=== PATIENT | male | born 1950 | race Hispanic/Latino ===

== ENCOUNTER 2017-06-16 20:36 | Emergency (ER) | payer OTHER ==
[2017-06-16] MEDS ORDERED: OCTYL 2-CYANOACRYLATE 1 EACH TP ONE ×2 (21:24→22:39)
== END 2017-06-16 23:27 | disposition home or self-care (01) ==
LOC: EDH 20:36
DX: S51.811A Laceration without foreign body of right forearm, initial encounter (principal); S51.011A Laceration without foreign body of right elbow, initial encounter; E11.9 Type 2 diabetes mellitus without complications; I10 Essential (primary) hypertension; E78.5 Hyperlipidemia, unspecified; Z72.0 Tobacco use; W01.0XXA Fall on same level from slipping, tripping and stumbling without subsequent striking against object, initial encounter; Y93.01 Activity, walking, marching and hiking; Y92.098 Other place in other non-institutional residence as the place of occurrence of the external cause; Y99.8 Other external cause status
CPT/HCPCS: 12004

== ENCOUNTER 2017-07-24 15:18 | Inpatient (IN) | payer OTHER ==
[~2017-07-24] VITALS: Ht 160 cm; Wt 73.0 kg
[2017-07-24 17:09] LABS: BASOPHILS % (AUTO) 0.6 % (0.0-5.0); EOSINOPHILS % (AUTO) 0.1 % (0.0-8.0); HEMATOCRIT 43.8 % (42-54); LYMPHOCYTES % (AUTO) 11.9 % (21.0-51.0); MEAN CORPUSCULAR HEMOGLOBIN 25.9 pg (27.0-33.0); MEAN CORPUSCULAR HGB CONC 32.4 g/dL (32.0-36.0); MEAN CORPUSCULAR VOLUME 79.8 fL (79-99); MONOCYTES % (AUTO) 7.8 % (3.0-13.0); NEUTROPHILS % (AUTO) 79.6 % (40.0-77.0); PLATELET COUNT (AUTO) 296 K/uL (130-400); RED BLOOD CELL COUNT(AUTO) 5.49 MIL/uL (4.50-6.20); RED CELL DISTRIBUTION WIDTH 17.9 % (11.0-15.5); WHITE BLOOD COUNT (AUTO) 14.3 K/uL (4.8-10.8)
[2017-07-24 17:20] LABS: CREATININE 0.8 mg/dL (0.5-1.5); POTASSIUM 3.4 mmol/L (3.5-5.1)
[2017-07-24 17:24] LABS: INR 0.96 (0.85-1.15); PARTIAL THROMBOPLASTIN TIME 26.8 SEC (26.3-35.5); PROTHROMBIN TIME 9.9 SEC (9.6-11.6)
[2017-07-24 17:28] LABS: APPEARANCE,URINE Clear (CLEAR); BILIRUBIN,URINE Negative (NEGATIVE); COLOR,URINE Yellow (YELLOW); GLUCOSE, URINE (UA) Negative (NEGATIVE); KETONES,URINE Negative (NEGATIVE); LEUKOCYTE ESTERASE ,URINE Negative (NEGATIVE); NITRATE,URINE Negative (NEGATIVE); OCCULT BLOOD,URINE Trace (NEGATIVE); PH,URINE 6.5 (5.0-8.0); PROTEIN,URINE POS 1+ (NEGATIVE)
[2017-07-24 17:34] LABS: ALBUMIN 3.2 g/dL (3.5-5.0); BILIRUBIN,TOTAL 0.3 mg/dL (0.2-1.0); CREATINE KINASE MB 0.6 ng/mL (0.5-3.6); TOTAL PROTEIN, SERUM 7.2 g/dL (6.0-8.3)
[2017-07-24 17:36] LABS: BACTERIA,URINE None Seen /HPF (None Seen); HYALINE CASTS, URINE 0-1 /LPF (0-1 /LPF); MUCUS,URINE Moderate LPF (None Seen); RBC,URINE None Seen /HPF (0-1); SQUAMOUS EPITHELIAL CELL,UR 0-2 /HPF (0-2); WBC,URINE None Seen /HPF (0-1)
[2017-07-24] MEDS ORDERED: KETOROLAC TROMETHAMINE 15MG/ML ONE (18:12)
[2017-07-25] VITALS (22 sets, daily range): BP systolic 114–189; BP diastolic 57–105
[2017-07-25 07:02] LABS: BASOPHILS % (AUTO) 0.6 % (0.0-5.0); EOSINOPHILS % (AUTO) 0.4 % (0.0-8.0); HEMATOCRIT 44.1 % (42-54); LYMPHOCYTES % (AUTO) 16.1 % (21.0-51.0); MEAN CORPUSCULAR HEMOGLOBIN 26.1 pg (27.0-33.0); MEAN CORPUSCULAR HGB CONC 32.5 g/dL (32.0-36.0); MEAN CORPUSCULAR VOLUME 80.4 fL (79-99); MONOCYTES % (AUTO) 7.4 % (3.0-13.0); NEUTROPHILS % (AUTO) 75.5 % (40.0-77.0); PLATELET COUNT (AUTO) 360 K/uL (130-400); RED BLOOD CELL COUNT(AUTO) 5.49 MIL/uL (4.50-6.20); RED CELL DISTRIBUTION WIDTH 17.8 % (11.0-15.5); WHITE BLOOD COUNT (AUTO) 13.9 K/uL (4.8-10.8)
[2017-07-25 07:17] LABS: CREATININE 0.6 mg/dL (0.5-1.5); POTASSIUM 3.8 mmol/L (3.5-5.1)
[2017-07-25 07:24] LABS: ALBUMIN 3.1 g/dL (3.5-5.0); BILIRUBIN,TOTAL 0.5 mg/dL (0.2-1.0); TOTAL PROTEIN, SERUM 7.3 g/dL (6.0-8.3)
[2017-07-25] MEDS ORDERED: SODIUM CHLORIDE 0.9% 1000ML 1,000 ML IV ONE (09:58)
[2017-07-25] MEDS ORDERED: GLYCOPYRROLATE 0.2 MG/ML 5 ML VIAL ONE (10:09)
[2017-07-25] MEDS ORDERED: LIDOCAINE PF 2% 5ML ABBOJECT ONE (10:09)
[2017-07-25] MEDS ORDERED: DEXAMETHASONE SOD PHOSPHATE 10MG/ML 1ML VIAL ONE (10:09)
[2017-07-25] MEDS ORDERED: MIDAZOLAM HCL 1 MG/ML 2ML VIAL ONE (10:10)
[2017-07-25] MEDS ORDERED: PROPOFOL 10 MG/ML 20ML VIAL IV ONE (10:10)
[2017-07-25] MEDS ORDERED: FENTANYL CITRATE PF 50 MCG/1 ML 2ML VIAL ONE (10:11)
[2017-07-25] MEDS ORDERED: CEFAZOLIN SODIUM 1 GM VIAL ONE (10:14)
[2017-07-25] MEDS ORDERED: ROCURONIUM BROMIDE 10MG/1ML 5ML VL ONE ×3 (10:25)
[2017-07-25] MEDS ORDERED: BUPIVACAINE/PF 0.25% 30ML VIAL IJ ONE (10:41)
[2017-07-25] MEDS ORDERED: ACETAMINOPHEN-CODEINE 300/30MG TAB PO PRN (11:00)
[2017-07-25] MEDS ORDERED: MEPERIDINE-PF 25 MG/ML SYG ONE (11:17)
[2017-07-25] MEDS ORDERED: ONDANSETRON HCL MDV 20ML 2 MG/ML VIAL IVP PRN (12:00)
[2017-07-25] MEDS ORDERED: MORPHINE SULFATE 4 MG/1ML SYG IVP PRN (12:00)
[2017-07-25] MEDS ORDERED: CLON0.3T PO (12:32)
[2017-07-25] MEDS ORDERED: AMLO5TAB2 PO (12:32)
[2017-07-25] MEDS: SODIUM CHLORIDE 0.9% 1000ML 1,000 ML IV SCH (12:33)
[2017-07-25] MEDS ORDERED: ONDANSETRON HCL 4 MG/2 ML VIAL IVP PRN (13:15)
[2017-07-25] MEDS ORDERED: GLUCAGON 1MG KIT 1 MG ML IM PRN (13:15)
[2017-07-25] MEDS ORDERED: HYDRALAZINE HCL 20 MG/ML VIAL IV PRN (13:15)
[2017-07-25] MEDS ORDERED: DEXTROSE 50%-WATER 50 ML DISP.SYRIN IV PRN (13:15)
[2017-07-25] MEDS: INSULIN HUMULIN R 100 UNIT/ML 3ML SQ SCH ×2 (16:15→21:00)
[2017-07-25] MEDS: CEFAZOLIN SODIUM 1 GM VIAL IVP SCH (17:19)
[2017-07-25] MEDS ORDERED: CEFAZOLIN 2GM / 50 ML 50 ML IV SCH (18:00)
[2017-07-25] MEDS: CLONIDINE HCL 0.3 MG TABLET PO SCH ×2 (18:14→22:12)
[2017-07-26] MEDS ORDERED: CEFAZOLIN SODIUM 1 GM VIAL ONE (03:02)
[2017-07-26 03:05] VITALS: BP 141/83
[2017-07-26] MEDS: CEFAZOLIN SODIUM 1 GM VIAL IVP SCH (03:13)
[2017-07-26] MEDS: SODIUM CHLORIDE 0.9% 1000ML 1,000 ML IV SCH (06:55)
[2017-07-26 07:05] VITALS: BP 168/83
[2017-07-26] MEDS: INSULIN HUMULIN R 100 UNIT/ML 3ML SQ SCH ×2 (07:30→11:30)
[2017-07-26] MEDS ORDERED: NYSTATIN 15 GM POWDER TP SCH (09:00)
[2017-07-26] MEDS ORDERED: AMLODIPINE BESYLATE 5 MG TAB PO SCH (09:00)
[2017-07-26 11:00] VITALS: BP 157/72
[2017-07-26 11:59] VITALS: BP 152/72
[2017-07-26] MEDS: CLONIDINE HCL 0.3 MG TABLET PO SCH (11:59)
== END 2017-07-26 16:36 | disposition home or self-care (01) | DRG 355 ==
LOC: EDH 15:18 → OBSVTOIN 18:02 → EDHIP 18:02 → 4BH 07-25 10:07
PROVIDERS: ADMIT Internal Medicine; ATTEND Internal Medicine
PROC: 0WQF0ZZ Repair Abdominal Wall, Open Approach (ICD-10-PCS; principal; 2017-07-25 10:25)
DX: K42.0 Umbilical hernia with obstruction, without gangrene (principal); E11.9 Type 2 diabetes mellitus without complications; I10 Essential (primary) hypertension; E78.5 Hyperlipidemia, unspecified; Z86.73 Personal history of transient ischemic attack (TIA), and cerebral infarction without residual deficits; N28.89 Other specified disorders of kidney and ureter
CPT/HCPCS: 36415; 71045; 74176; 76770; 80053; 81001; 82150; 82550; 82553; 82948; 83690; 84484; 85025; 85610; 85730; 93005; A4218; A4606; C1781; J0360; J0690; J1100; J1885; J2001; J2175; J2250; J2704; J3010; J3490; J7030; J7120

== ENCOUNTER 2018-12-11 09:00 | Emergency (ER) | payer OTHER ==
[~2018-12-11 09:00] MED LIST: ACET-2247 PO; AMLO5TAB9 PO; ASPI1CPM6 PO; CLON0.3T PO; ESCI20TA PO; LEVO150T11 PO; PRAV10TA39 PO; TRAZ150T79 PO
[2018-12-11 09:31] LABS: BASOPHILS % (AUTO) 1.1 % (0.0-5.0); EOSINOPHILS % (AUTO) 0.3 % (0.0-8.0); HEMATOCRIT 40.6 % (42-54); LYMPHOCYTES % (AUTO) 14.5 % (21.0-51.0); MEAN CORPUSCULAR HEMOGLOBIN 23.6 pg (27.0-33.0); MEAN CORPUSCULAR HGB CONC 31.5 g/dL (32.0-36.0); MEAN CORPUSCULAR VOLUME 74.8 fL (79-99); MONOCYTES % (AUTO) 7.6 % (3.0-13.0); NEUTROPHILS % (AUTO) 76.5 % (40.0-77.0); PLATELET COUNT (AUTO) 199 K/uL (130-400); RED BLOOD CELL COUNT(AUTO) 5.43 MIL/uL (4.50-6.20); RED CELL DISTRIBUTION WIDTH 20.7 % (11.0-15.5); WHITE BLOOD COUNT (AUTO) 9.2 K/uL (4.8-10.8)
[2018-12-11 09:44] LABS: CARBON DIOXIDE 30 mmol/L (21-32); CHLORIDE 106 mmol/L (101-111); CREATININE 0.5 mg/dL (0.5-1.5); GLOMERULAR FILTR. RATE CALC 176 mL/min (>60); GLUCOSE,RANDOM 109 mg/dL (70-105); POTASSIUM 3.7 mmol/L (3.5-5.1); SODIUM SERUM 144 mmol/L (136-145); UREA NITROGEN, BLOOD 12 mg/dL (7-18)
[2018-12-11 09:45] LABS: INR 0.91 (0.85-1.15); PARTIAL THROMBOPLASTIN TIME 28.2 SEC (26.3-35.5); PROTHROMBIN TIME 9.6 SEC (9.6-11.6)
[2018-12-11 09:48] LABS: ALANINE AMINOTRANSFERASE 18 U/L (12-78); ALBUMIN 2.9 g/dL (3.5-5.0); ALCOHOL, BLOOD < 3 mg/dL (0-10); ASPARTATE AMINOTRANSFERASE 19 U/L (10-37); BILIRUBIN,TOTAL 0.2 mg/dL (0.2-1.0); TOTAL PROTEIN, SERUM 6.2 g/dL (6.0-8.3)
[2018-12-11 10:47] LABS: AMPHET/METH SCREEN,URINE NEGATIVE (NEGATIVE); BARBITURATE SCREEN, URINE NEGATIVE (NEGATIVE); BENZODIAZEPINES SCREEN,URINE NEGATIVE (NEGATIVE); CANNABINOID SCREEN,URINE NEGATIVE (NEGATIVE); COCAINE SCREEN,URINE NEGATIVE (NEGATIVE); OPIATE SCREEN,URINE NEGATIVE (NEGATIVE); PHENCYCLIDINE SCREEN,URINE NEGATIVE (NEGATIVE)
== END 2018-12-11 11:27 | disposition home or self-care (01) ==
LOC: EDH 09:00
DX: S29.9XXA Unspecified injury of thorax, initial encounter (principal); S40.812A Abrasion of left upper arm, initial encounter; S43.402A Unspecified sprain of left shoulder joint, initial encounter; I10 Essential (primary) hypertension; E78.5 Hyperlipidemia, unspecified; E11.9 Type 2 diabetes mellitus without complications; Z86.73 Personal history of transient ischemic attack (TIA), and cerebral infarction without residual deficits; Z72.0 Tobacco use; Z98.890 Other specified postprocedural states; W18.39XA Other fall on same level, initial encounter; Y93.01 Activity, walking, marching and hiking; Y92.89 Other specified places as the place of occurrence of the external cause; Y99.8 Other external cause status
CPT/HCPCS: 36415; 71250; 80053; 80305; 84484; 85025; 85610; 85730; 93005; 99285; G0480

== ENCOUNTER 2019-06-09 13:47 | Emergency (ER) | payer OTHER ==
[2019-06-09 15:09] LABS: BASOPHILS % (AUTO) 0.4 % (0.0-5.0); EOSINOPHILS % (AUTO) 0.7 % (0.0-8.0); HEMATOCRIT 42.8 % (42-54); LYMPHOCYTES % (AUTO) 19.6 % (21.0-51.0); MEAN CORPUSCULAR HEMOGLOBIN 24.6 pg (27.0-33.0); MEAN CORPUSCULAR HGB CONC 30.4 g/dL (32.0-36.0); MEAN CORPUSCULAR VOLUME 81.1 fL (79-99); MONOCYTES % (AUTO) 8.5 % (3.0-13.0); NEUTROPHILS % (AUTO) 70.3 % (40.0-77.0); PLATELET COUNT (AUTO) 288 K/uL (130-400); RED BLOOD CELL COUNT(AUTO) 5.28 MIL/uL (4.50-6.20); RED CELL DISTRIBUTION WIDTH 19.9 % (11.0-15.5); WHITE BLOOD COUNT (AUTO) 13.7 K/uL (4.8-10.8)
[2019-06-09 15:21] LABS: CREATININE 0.6 mg/dL (0.5-1.5); POTASSIUM 3.5 mmol/L (3.5-5.1)
[2019-06-09 15:24] LABS: INR 0.92 (0.85-1.15); PARTIAL THROMBOPLASTIN TIME 27.5 SEC (26.3-35.5); PROTHROMBIN TIME 9.7 SEC (9.6-11.6)
[2019-06-09 15:25] LABS: ALBUMIN 3.4 g/dL (3.5-5.0); BILIRUBIN,TOTAL 0.2 mg/dL (0.2-1.0)
== END 2019-06-09 16:27 | disposition home or self-care (01) ==
LOC: EDH 13:47
DX: S51.012A Laceration without foreign body of left elbow, initial encounter (principal); S00.83XA Contusion of other part of head, initial encounter; R53.1 Weakness; E78.5 Hyperlipidemia, unspecified; I10 Essential (primary) hypertension; E11.9 Type 2 diabetes mellitus without complications; Z86.73 Personal history of transient ischemic attack (TIA), and cerebral infarction without residual deficits; Z72.0 Tobacco use; W18.39XA Other fall on same level, initial encounter; Y93.89 Activity, other specified; Y92.89 Other specified places as the place of occurrence of the external cause; Y99.8 Other external cause status
CPT/HCPCS: 36415; 70450; 71045; 73080; 80053; 84484; 85025; 85610; 85730; 93005

== ENCOUNTER 2020-03-19 00:31 | Inpatient (IN) | payer OTHER ==
[~2020-03-19] VITALS: Ht 160 cm; Wt 72.9 kg
[~2020-03-19 00:31] MED LIST changes: +AMLO-257 PO; -AMLO5TAB9 PO
[2020-03-19 01:08] LABS: BASOPHILS % (AUTO) 0.3 % (0.0-5.0); EOSINOPHILS % (AUTO) 0.1 % (0.0-8.0); HEMATOCRIT 44.3 % (42-54); LYMPHOCYTES % (AUTO) 8.9 % (21.0-51.0); MEAN CORPUSCULAR HEMOGLOBIN 21.8 pg (27.0-33.0); MEAN CORPUSCULAR HGB CONC 29.1 g/dL (32.0-36.0); MEAN CORPUSCULAR VOLUME 74.8 fL (79-99); MONOCYTES % (AUTO) 7.5 % (3.0-13.0); NEUTROPHILS % (AUTO) 82.2 % (40.0-77.0); PLATELET COUNT (AUTO) 246 K/uL (130-400); RED BLOOD CELL COUNT(AUTO) 5.92 MIL/uL (4.50-6.20); RED CELL DISTRIBUTION WIDTH 21.1 % (11.0-15.5); WHITE BLOOD COUNT (AUTO) 12.5 K/uL (4.8-10.8)
[2020-03-19 01:17] LABS: BILIRUBIN,TOTAL 0.3 mg/dL (0.2-1.0); CREATININE 0.7 mg/dL (0.5-1.5); TOTAL PROTEIN, SERUM 7.1 g/dL (6.0-8.3)
[2020-03-19 01:21] LABS: POTASSIUM 2.9 mmol/L (3.5-5.1)
[2020-03-19] MEDS ORDERED: POTASSIUM CHLORIDE 20 MEQ ERTAB PO ONE (02:33)
[2020-03-19] MEDS ORDERED: MORPHINE SULFATE 4 MG/1ML SYG ONE (02:51)
[2020-03-19 03:03] LABS: APPEARANCE,URINE Clear (CLEAR); BILIRUBIN,URINE Negative (NEGATIVE); COLOR,URINE Yellow (YELLOW); GLUCOSE, URINE (UA) Negative (NEGATIVE); KETONES,URINE Negative (NEGATIVE); LEUKOCYTE ESTERASE ,URINE Negative (NEGATIVE); NITRATE,URINE Negative (NEGATIVE); OCCULT BLOOD,URINE Negative (NEGATIVE); PROTEIN,URINE Trace mg/dL (NEGATIVE)
[2020-03-19 03:10] LABS: BACTERIA,URINE None Seen /HPF (None Seen); RBC,URINE None Seen /HPF (0-1); WBC,URINE None Seen /HPF (0-1)
[2020-03-19] MEDS ORDERED: ASPIRIN 325 MG TABLET ONE (06:19)
[2020-03-19 09:15] LABS: TROPONIN I 1.29 ng/mL (0.00-0.06)
[2020-03-19 09:51] LABS: CREATININE 0.5 mg/dL (0.5-1.5); POTASSIUM 3.5 mmol/L (3.5-5.1)
[2020-03-19 12:38] VITALS: BP 143/72
[2020-03-19 12:56] LABS: TROPONIN I 1.44 ng/mL (0.00-0.06)
[2020-03-19] MEDS ORDERED: LINA145C PO (15:52)
[2020-03-19] MEDS ORDERED: FURO20TA4 PO (15:52)
[2020-03-19 17:33] VITALS: BP 144/69
[2020-03-19] MEDS ORDERED: PHARMACY COMMUNICATION MISC SCH (17:45)
[2020-03-19 19:55] VITALS: BP 158/71
[2020-03-19] MEDS: TRAMADOL HCL 50 MG TABLET PO PRN (20:45)
[2020-03-19] MEDS ORDERED: ENOXAPARIN SODIUM 80 MG/0.8 ML SQ SCH (21:00)
[2020-03-20 00:07] VITALS: BP 142/68
[2020-03-20 03:47] VITALS: BP 166/71
[2020-03-20 06:18] LABS: BASOPHILS % (AUTO) 0.3 % (0.0-5.0); EOSINOPHILS % (AUTO) 0.3 % (0.0-8.0); HEMATOCRIT 41.4 % (42-54); MEAN CORPUSCULAR HEMOGLOBIN 22.1 pg (27.0-33.0); MEAN CORPUSCULAR HGB CONC 29.5 g/dL (32.0-36.0); MONOCYTES % (AUTO) 8.1 % (3.0-13.0); NEUTROPHILS % (AUTO) 69.6 % (40.0-77.0); PLATELET COUNT (AUTO) 229 K/uL (130-400); RED BLOOD CELL COUNT(AUTO) 5.52 MIL/uL (4.50-6.20); RED CELL DISTRIBUTION WIDTH 20.4 % (11.0-15.5); WHITE BLOOD COUNT (AUTO) 11.7 K/uL (4.8-10.8)
[2020-03-20 06:31] LABS: ALBUMIN 2.8 g/dL (3.5-5.0); BILIRUBIN,TOTAL 0.5 mg/dL (0.2-1.0); CREATININE 0.6 mg/dL (0.5-1.5); POTASSIUM 3.7 mmol/L (3.5-5.1); TOTAL PROTEIN, SERUM 6.9 g/dL (6.0-8.3)
[2020-03-20 08:00] VITALS: BP 138/72
[2020-03-20] MEDS ORDERED: CLONIDINE HCL 0.1 MG TABLET PO PRN (08:15)
[2020-03-20] MEDS ORDERED: ENOXAPARIN SODIUM 80 MG/0.8 ML SQ SCH (09:00)
[2020-03-20] MEDS: METOPROLOL TARTRATE 25 MG TAB PO SCH ×2 (09:37→20:45)
[2020-03-20] MEDS: ASPIRIN 325MG EC TAB 325 MG TABLET.DR PO SCH (09:38)
[2020-03-20] MEDS: TRAMADOL HCL 50 MG TABLET PO PRN (11:13)
[2020-03-20] MEDS ORDERED: NITROGLYCERIN 0.4 MG SL TAB SL ONE (11:22)
[2020-03-20] MEDS ORDERED: NITROGLYCERIN 0.4 MG SL TAB SL PRN (11:30)
--- NOTE | 2020-03-20 11:31 | NUR ---
pt complains of chest pain, informed Radha ISSA. orders received. Gave Nitroglycerin SL. After 5 mins, pt denies chest pain. Addendum: 03/20/20 at 1228 by JOSE KAMINSKI RN Amended: Links added.
[2020-03-20 12:07] VITALS: BP 163/93
--- NOTE | 2020-03-20 15:10 | NUR ---
bedbath done by Rosa montgomery. open wound noted on left lower buttock, picture taken, covered with gauze and tegaderm. wound consult ordered Addendum: 03/20/20 at 1634 by JOSE KAMINSKI RN Amended: Links added.
[2020-03-20] MEDS ORDERED: NON-FORMULARY MEDICATION 1 EACH (Linaclotide (Linzess) 145 MCG) PO SCH (15:15)
--- NOTE | 2020-03-20 16:41 | NUR ---
[facility] CONSULT Patient assessed by wound healing center team. See patient wound assessment. Assessment and recommendations discussed with primary nurse. Orders entered. Education provided. Addendum: 03/20/20 at 1643 by TUSHAR CUEVAS RN RN/ Amended: Links added.
[2020-03-20 16:43] VITALS: BP 168/82
[2020-03-20] MEDS ORDERED: SODIUM CHLORIDE 0.9% 500ML 500 ML IV SCH (16:45)
[2020-03-20 20:00] VITALS: BP 183/83
[2020-03-20] MEDS: TRAZODONE HCL 100 MG TABLET PO SCH (20:45)
[2020-03-20] MEDS: CLONIDINE HCL 0.3 MG TABLET PO SCH (20:45)
[2020-03-20] MEDS: ATORVASTATIN CALCIUM 40 MG TABLET PO SCH (20:46)
[2020-03-20] MEDS: ENOXAPARIN SODIUM 80 MG/0.8 ML SQ SCH (20:47)
[2020-03-20] MEDS ORDERED: NON-FORMULARY MEDICATION 1 EACH (Pravastatin Sodium 10 MG) PO SCH (21:00)
[2020-03-20] MEDS ORDERED: PRAVASTATIN 10MG PO SCH (21:00)
[2020-03-20] MEDS ORDERED: NON-FORMULARY MEDICATION 1 EACH (Trazodone HCl 150 MG) PO SCH (21:00)
[2020-03-21] VITALS (15 sets, daily range): BP systolic 124–179; BP diastolic 58–100
[2020-03-21 05:21] LABS: BASOPHILS % (AUTO) 0.1 % (0.0-5.0); EOSINOPHILS % (AUTO) 0.2 % (0.0-8.0); HEMATOCRIT 40.2 % (42-54); LYMPHOCYTES % (AUTO) 14.8 % (21.0-51.0); MEAN CORPUSCULAR HGB CONC 29.6 g/dL (32.0-36.0); MEAN CORPUSCULAR VOLUME 74.2 fL (79-99); NEUTROPHILS % (AUTO) 77.2 % (40.0-77.0); PLATELET COUNT (AUTO) 228 K/uL (130-400); RED BLOOD CELL COUNT(AUTO) 5.42 MIL/uL (4.50-6.20); RED CELL DISTRIBUTION WIDTH 20.4 % (11.0-15.5); WHITE BLOOD COUNT (AUTO) 10.8 K/uL (4.8-10.8)
[2020-03-21] MEDS: ZINC OXIDE OINT 56.7 GM TP SCH ×4 (05:27→22:24)
[2020-03-21] MEDS: LEVOTHYROXINE 150 MCG TABLET PO SCH (05:37)
[2020-03-21 05:39] LABS: INR 0.92 (0.85-1.15); PARTIAL THROMBOPLASTIN TIME 31.7 SEC (26.3-35.5)
[2020-03-21 05:44] LABS: POTASSIUM 4.1 mmol/L (3.5-5.1); TROPONIN I 0.31 ng/mL (0.00-0.06)
[2020-03-21 05:48] LABS: CREATININE 0.5 mg/dL (0.5-1.5)
[2020-03-21] MEDS: METOPROLOL TARTRATE 25 MG TAB PO SCH ×2 (06:20→22:22)
[2020-03-21] MEDS ORDERED: NITROGLYCERIN 2 MG/VIAL VIAL IV ONE (07:22)
[2020-03-21] MEDS ORDERED: BIVALIRUDIN 250 MG/VIAL IV ONE (07:22)
[2020-03-21] MEDS ORDERED: IOHEXOL 350 MG/ML 100ML INFUS..BTL IV ONE (07:22)
[2020-03-21] MEDS ORDERED: LIDOCAINE HCL 2% 20ML ONE (07:23)
[2020-03-21] MEDS ORDERED: IOHEXOL-350 50ML VIAL IV ONE (07:23)
[2020-03-21] MEDS ORDERED: FENTANYL CITRATE PF 50 MCG/1 ML 2ML VIAL ONE (07:23)
[2020-03-21] MEDS ORDERED: MIDAZOLAM HCL 1 MG/ML 2ML VIAL ONE (07:23)
[2020-03-21] MEDS ORDERED: ASPIRIN 81MG TAB.CHEW ONE (08:31)
[2020-03-21] MEDS ORDERED: TICAGRELOR 90 MG TABLET ONE (08:31)
[2020-03-21] MEDS ORDERED: SODIUM CHLORIDE 0.9% 1000ML 1,000 ML IV SCH (08:45)
[2020-03-21] MEDS: ENOXAPARIN SODIUM 80 MG/0.8 ML SQ SCH ×2 (09:00→22:24)
[2020-03-21] MEDS: LINACLOTIDE 145 MCG PO SCH (09:00)
[2020-03-21] MEDS ORDERED: NON-FORMULARY MEDICATION 1 EACH (Escitalopram Oxalate (Lexapro) 20 MG) PO SCH (09:00)
[2020-03-21] MEDS: LEXAPRO 20 MG PO SCH (09:00)
[2020-03-21] MEDS: ASPIRIN 325MG EC TAB 325 MG TABLET.DR PO SCH (09:00)
[2020-03-21] MEDS: ASPIRIN 81MG TAB.CHEW PO SCH (09:00)
[2020-03-21] MEDS: TICAGRELOR 90 MG TABLET PO SCH ×2 (09:00→22:22)
--- NOTE | 2020-03-21 09:35 | NUR ---
PT RECEIVED FROM PHOTOGR[employer]HER [employer], AWAKE AND ALERT. DENIES CHEST PAIN, RIGHT GROIN INTACT, NO DRAINAGE OR HEMATOMA, PULSES PRESENT. ORIENTED TO ROOM AND CALL LIGHT
--- NOTE | 2020-03-21 09:50 | NUR ---
AWAKE AND ALERT, DENIES CHEST PAIN OR DISCOMFORT, R GROIN INTACT, NO DRAINAGE OR HEMATOMA. PULSES PRESENT, TELEMETRY MONITORING
[2020-03-21] MEDS: CLONIDINE HCL 0.3 MG TABLET PO SCH ×2 (12:11→21:00)
[2020-03-21] MEDS: AMLODIPINE BESYLATE 5 MG TAB PO SCH (12:12)
[2020-03-21] MEDS: TRAMADOL HCL 50 MG TABLET PO PRN (15:55)
--- NOTE | 2020-03-21 16:00 | NUR ---
AWAKE AND ALERT, DENIES CHEST PAIN OR DISCOMFORT ,TELEMETRY MONITORING
--- NOTE | 2020-03-21 17:39 | NUR ---
DC PLAN VISITED WITH PATIENT. PATIENT LIVES ALONE. SEMI INDEPENDENT ABLE TO PERFORM ADL'S. PATIENT HAS PROVIDER 4 HRS 7 DAYS A WEEK. WHEEL CHAIR, CANE, WALKER, BSC. FEELS NEEDS SOME THERAPY FOR ARMS. Addendum: 03/21/20 at 1741 by BILL JAMISON RN CM Amended: Links added.
[2020-03-21] MEDS: ATORVASTATIN CALCIUM 40 MG TABLET PO SCH (22:22)
[2020-03-21] MEDS: TRAZODONE HCL 100 MG TABLET PO SCH (22:22)
[2020-03-22 03:31] VITALS: BP 150/75
[2020-03-22 05:49] LABS: HEMATOCRIT 40.2 % (42-54); MEAN CORPUSCULAR HEMOGLOBIN 21.5 pg (27.0-33.0); MEAN CORPUSCULAR HGB CONC 28.9 g/dL (32.0-36.0); MEAN CORPUSCULAR VOLUME 74.6 fL (79-99); RED BLOOD CELL COUNT(AUTO) 5.39 MIL/uL (4.50-6.20); RED CELL DISTRIBUTION WIDTH 20.3 % (11.0-15.5); WHITE BLOOD COUNT (AUTO) 10.9 K/uL (4.8-10.8)
[2020-03-22 06:13] LABS: CREATININE 0.6 mg/dL (0.5-1.5); POTASSIUM 3.8 mmol/L (3.5-5.1)
[2020-03-22] MEDS: LEVOTHYROXINE 150 MCG TABLET PO SCH (06:37)
[2020-03-22 07:56] VITALS: BP 137/78
[2020-03-22] MEDS: ASPIRIN 81MG TAB.CHEW PO SCH (08:35)
[2020-03-22] MEDS: TICAGRELOR 90 MG TABLET PO SCH (08:36)
[2020-03-22] MEDS: CLONIDINE HCL 0.3 MG TABLET PO SCH (08:36)
[2020-03-22] MEDS: AMLODIPINE BESYLATE 5 MG TAB PO SCH (08:36)
[2020-03-22] MEDS: METOPROLOL TARTRATE 25 MG TAB PO SCH (08:36)
[2020-03-22] MEDS: ENOXAPARIN SODIUM 80 MG/0.8 ML SQ SCH (08:37)
[2020-03-22] MEDS: LINACLOTIDE 145 MCG PO SCH (08:37)
[2020-03-22] MEDS: LEXAPRO 20 MG PO SCH (08:37)
[2020-03-22] MEDS ORDERED: ZINC OXIDE OINT 60GM TUBE TP SCH (10:18)
--- NOTE | 2020-03-22 10:23 | NUR ---
DORIAN FERRER (FOR DR. RUBIO) IN TO VISIT WITH PATIENT. UPDATE GIVEN. STATED PT CAN BE DISCHARGED FROM CARDIOLOGY STANDPOINT AND WILL NOT NEED ROYAL INHIBITOR NOR ANGIOTENSIN RECEPTOR ROLANDO DUE TO PT'S EF OF 55%.
[2020-03-22 11:40] VITALS: BP 122/77
--- NOTE | 2020-03-22 12:00 | NUR ---
PER PROTOCOL PICTURE TAKEN OF COCCYX/BUTTOCKS AREA OF REDNESS, EXCORIATION NOTED. APPLIED DR. ARGUETA'S OINTMENT ORDERED.
--- NOTE | 2020-03-22 12:25 | NUR ---
REFUSED LUNCH MEAL AT THIS TIME AND STATED HE WILL EAT AT HOME.
--- NOTE | 2020-03-22 13:00 | NUR ---
DORIAN FERRER (FOR DR. GARCIA) CALLED AND ASKED TO ADD TO SCRIPT: METOPROLOL TARTRATE 25 MG PO BID. CALLED SCRIPT IN TO [facility] AT [phone]. INFORMED PATIENT AND DAUGHTER, KRISTEN.
--- NOTE | 2020-03-22 13:15 | NUR ---
GIVEN DISMISSAL INSTRUCTIONS TO PATIENT AND HIS DAUGHTER, KRISTEN ARREDONDO. VERBALIZED UNDERSTANDING. REMOVED SALINE LOCK FROM LEFT WRIST, IV SITE WITHOUT REDNESS NOTED. REMOVED TELE PACK. PER DAUGHTER, KRISTEN SHE PICKED UP PRESCRIBED MEDS YESTERDAY.
--- NOTE | 2020-03-22 13:50 | NUR ---
TAKEN TO PRIVATE CAR ALONG WITH PERSONAL BELONGINGS VIA WHEELCHAIR BY ESTEVAN FALL.
[2020-03-23] MEDS ORDERED: ENOXAPARIN SODIUM 40 MG/0.4 ML SYRINGE SQ SCH (09:00)
--- NOTE | 2020-03-24 15:28 | NUR ---
Metoprolol Metoprolol 25mg PO BID called into [facility]. Pt is no longer with [facility].
--- NOTE | 2020-03-24 15:39 | NUR ---
TRANSITIONAL CARE - POST-DISCHARGE NOTE Spoke to patient at number on file. As per Mr Hiram, he is doing well and currently following up with his pcp. The patient states he had a difficult time controlling his blood pressure this weekend but is doing well now. He states he his pharmacy told him he did not have a pending script, when asked if he was taking his medications. Script originally called into [facility], but now has been called in to [facility]. I called both pharmacies, and cancelled it at [facility] and the order has already been called in to [facility] as per pharmacist at [facility]. Mr Gandhi denies CP, SOB, N/V/D, fevers/chills.
--- NOTE | 2020-03-25 10:28 | NUR ---
Discharge Meds Pt states he did strip picker med but did not know how to take. I informed him that he is to take one in the am and one in the pm. I asked if he had a way to take his blood pressure and he said yes. I told him to check his blood pressure and heart rate prior to taking med. I told him if bp or hr was low not to take me and to let doctor know. He said he called Harleen to see if he can help him get a nurse to help with meds. I told pt he is welcome to call me if he has issues/questions.
== END 2020-03-22 13:47 | disposition home or self-care (01) | DRG 246 ==
LOC: EDH 00:31 → EDHIP 06:14 → OBSVTOIN 06:14 → 3DH 11:57 → 4CH 03-21 09:50
PROVIDERS: ADMIT Internal Medicine; ATTEND Internal Medicine
PROC: 4A023N7 Measurement of Cardiac Sampling and Pressure, Left Heart, Percutaneous Approach (ICD-10-PCS; principal; 2020-03-21)
PROC: 027034Z Dilation of Coronary Artery, One Artery with Drug-eluting Intraluminal Device, Percutaneous Approach (ICD-10-PCS; 2020-03-21)
PROC: B2111ZZ Fluoroscopy of Multiple Coronary Arteries using Low Osmolar Contrast (ICD-10-PCS; 2020-03-21)
PROC: B2151ZZ Fluoroscopy of Left Heart using Low Osmolar Contrast (ICD-10-PCS; 2020-03-21)
DX: I21.4 Non-ST elevation (NSTEMI) myocardial infarction (principal); I50.33 Acute on chronic diastolic (congestive) heart failure; I69.354 Hemiplegia and hemiparesis following cerebral infarction affecting left non-dominant side; I25.110 Atherosclerotic heart disease of native coronary artery with unstable angina pectoris; I11.0 Hypertensive heart disease with heart failure; F32.9 Major depressive disorder, single episode, unspecified; F41.9 Anxiety disorder, unspecified; E78.5 Hyperlipidemia, unspecified; E11.9 Type 2 diabetes mellitus without complications; E03.9 Hypothyroidism, unspecified; I24.9 Acute ischemic heart disease, unspecified; M79.18 Myalgia, other site; S70.312A Abrasion, left thigh, initial encounter; L81.8 Other specified disorders of pigmentation; R53.81 Other malaise; F17.210 Nicotine dependence, cigarettes, uncomplicated; W19.XXXA Unspecified fall, initial encounter; Y92.098 Other place in other non-institutional residence as the place of occurrence of the external cause; Y93.89 Activity, other specified; Y99.8 Other external cause status
CPT/HCPCS: 36415; 70450; 71045; 72125; 72128; 72131; 73030; 73200; 73521; 80048; 80053; 81001; 82550; 82948; 83874; 84484; 85025; 85027; 85610; 85730; 93005; 93306; 93356; 93458; 99156; 99157; C1887; C1894; C9600; G0378; J0583; J1644; J1650; J2250; J2270; J3010; J3490; Q9967

== ENCOUNTER 2021-06-04 11:03 | Observation (INO) | payer OTHER ==
[~2021-06-04] VITALS: Ht 172.7 cm; Wt 79.0 kg
[~2021-06-04 11:03] MED LIST changes: -ACET-2247 PO; +ASPI-1005 PO; -CLON0.3T PO; +CLOP75TA14 PO; +FLUC100T12 PO; +FURO20TA4 PO; +LEVO125 PO; -LEVO150T11 PO; +METO25TA6 PO; +TICA90TA PO; -TRAZ150T79 PO
[2021-06-04] MEDS ORDERED: 0.9% NACL 500ML IV.SOLN 500 ML IV ONE (13:30)
[2021-06-04] MEDS ORDERED: ONDANSETRON 4MG INJ IVP ONE (13:30)
[2021-06-04] MEDS ORDERED: MORPHINE 2 MG SYG IM ONE (13:30)
[2021-06-04] MEDS ORDERED: TRAMADOL HCL 50 MG TABLET PO SCH (13:30)
[2021-06-04] MEDS: LIDOCAINE HCL 2% JELLY 5 ML TP SCH ×2 (13:57→14:14)
[2021-06-04] MEDS ORDERED: LIDOCAINE HCL 5% OINT 50GM 1 APPL/GM TUBE TP SCH (14:00)
[2021-06-04 14:01] LABS: BASOPHILS % (AUTO) 0.5 % (0.0-5.0); EOSINOPHILS % (AUTO) 0.4 % (0.0-8.0); HEMATOCRIT 51.8 % (42-54); LYMPHOCYTES % (AUTO) 20.9 % (21.0-51.0); MEAN CORPUSCULAR HEMOGLOBIN 26.7 pg (27.0-33.0); MEAN CORPUSCULAR HGB CONC 30.1 g/dL (32.0-36.0); MEAN CORPUSCULAR VOLUME 88.7 fL (79-99); MONOCYTES % (AUTO) 8.2 % (3.0-13.0); NEUTROPHILS % (AUTO) 68.7 % (40.0-77.0); PLATELET COUNT (AUTO) 170 K/uL (130-400); RED BLOOD CELL COUNT(AUTO) 5.84 MIL/uL (4.50-6.20); RED CELL DISTRIBUTION WIDTH 23.8 % (11.0-15.5); WHITE BLOOD COUNT (AUTO) 10.1 K/uL (4.8-10.8)
[2021-06-04 14:21] LABS: APPEARANCE,URINE Clear (CLEAR); BILIRUBIN,URINE Negative (NEGATIVE); COLOR,URINE Dark Yellow (YELLOW); GLUCOSE, URINE (UA) Negative (NEGATIVE); KETONES,URINE Trace mg/dL (NEGATIVE); LEUKOCYTE ESTERASE ,URINE Trace (NEGATIVE); NITRATE,URINE Negative (NEGATIVE); OCCULT BLOOD,URINE Negative (NEGATIVE); PROTEIN,URINE Trace mg/dL (NEGATIVE)
[2021-06-04 14:27] LABS: BACTERIA,URINE Rare /HPF (None Seen); MUCUS,URINE Rare LPF (None Seen); RBC,URINE 0-1 /HPF (0-1); SQUAMOUS EPITHELIAL CELL,UR Rare /HPF (0-2); WBC,URINE 0-1 /HPF (0-1)
[2021-06-04 14:33] LABS: ALBUMIN 2.9 g/dL (3.5-5.0); BILIRUBIN,TOTAL 0.3 mg/dL (0.2-1.0); CREATININE 0.6 mg/dL (0.5-1.5); POTASSIUM 3.5 mmol/L (3.5-5.1); TOTAL PROTEIN, SERUM 6.4 g/dL (6.0-8.3)
[2021-06-04] MEDS ORDERED: CEFTRIAXONE 1G VIAL IV ONE (15:00)
[2021-06-04] MEDS ORDERED: CEFTRIAXONE 1G VIAL ONE (15:04)
[2021-06-04] MEDS ORDERED: LACTULOSE 20 GM/30 ML UDCUP PO PRN (17:30)
[2021-06-04] MEDS ORDERED: HYDRALAZINE 20MG/ML VIAL IV PRN (17:30)
[2021-06-04] MEDS ORDERED: ALBUTEROL 0.083% 2.5 MG/3 ML INH IH PRN (17:30)
[2021-06-04] MEDS ORDERED: LABETALOL 20MG SYG IV PRN (17:30)
[2021-06-04] MEDS ORDERED: ONDANSETRON 4MG INJ IVP PRN (17:30)
[2021-06-04] MEDS: INSULIN HUMULIN R 100 UNIT/ML 3ML SQ SCH (20:13)
[2021-06-04] MEDS: ENOXAPARIN SODIUM 80 MG/0.8 ML SQ SCH (20:56)
[2021-06-04] MEDS: ACETAMINOPHEN 325 MG TAB PO PRN (22:21)
[2021-06-05 03:00] VITALS: BP 150/79
[2021-06-05] MEDS ORDERED: CEFTRIAXONE 1G VIAL IVP SCH ×2 (04:00→09:00)
[2021-06-05] MEDS: 0.9%NACL 1000ML 1,000 ML IV SCH ×2 (04:30→17:33)
[2021-06-05] MEDS: ACETAMINOPHEN 325 MG TAB PO PRN ×2 (05:02→13:12)
[2021-06-05] MEDS: INSULIN HUMULIN R 100 UNIT/ML 3ML SQ SCH ×4 (06:28→21:00)
[2021-06-05 06:58] LABS: BASOPHILS % (AUTO) 0.4 % (0.0-5.0); EOSINOPHILS % (AUTO) 0.4 % (0.0-8.0); HEMATOCRIT 46.6 % (42-54); LYMPHOCYTES % (AUTO) 19.9 % (21.0-51.0); MEAN CORPUSCULAR HEMOGLOBIN 26.2 pg (27.0-33.0); MEAN CORPUSCULAR VOLUME 87.3 fL (79-99); MONOCYTES % (AUTO) 7.8 % (3.0-13.0); NEUTROPHILS % (AUTO) 70.2 % (40.0-77.0); PLATELET COUNT (AUTO) 165 K/uL (130-400); RED BLOOD CELL COUNT(AUTO) 5.34 MIL/uL (4.50-6.20); RED CELL DISTRIBUTION WIDTH 23.1 % (11.0-15.5); WHITE BLOOD COUNT (AUTO) 9.5 K/uL (4.8-10.8)
[2021-06-05 07:18] LABS: CREATININE 0.4 mg/dL (0.5-1.5); PHOSPHORUS 2.7 mg/dL (2.5-4.9); POTASSIUM 3.7 mmol/L (3.5-5.1)
[2021-06-05 08:00] VITALS: BP 154/96
[2021-06-05] MEDS ORDERED: PANTOPRAZOLE 40 MG TAB DR PO SCH (09:00)
[2021-06-05] MEDS: ENOXAPARIN SODIUM 80 MG/0.8 ML SQ SCH (10:59)
[2021-06-05 11:55] VITALS: BP 150/78
[2021-06-05 16:00] VITALS: BP 160/94
[2021-06-05] MEDS ORDERED: FLUCONAZOLE 100 MG TAB PO SCH (16:54)
[2021-06-05] MEDS: HYDROCORTISONE 1% CREAM 28G TP SCH ×2 (17:51→21:44)
[2021-06-05 20:00] VITALS: BP 147/68
[2021-06-05] MEDS ORDERED: ENOXAPARIN SODIUM 30 MG/0.3 ML SQ SCH (21:00)
[2021-06-05 23:58] VITALS: BP 166/95
[2021-06-06 04:00] VITALS: BP 160/80
[2021-06-06] MEDS: ACETAMINOPHEN 325 MG TAB PO PRN (05:33)
[2021-06-06] MEDS: INSULIN HUMULIN R 100 UNIT/ML 3ML SQ SCH (05:34)
[2021-06-06] MEDS: 0.9%NACL 1000ML 1,000 ML IV SCH (05:39)
[2021-06-06] MEDS ORDERED: FLUC100T12 PO (07:15)
[2021-06-06 07:45] VITALS: BP 163/67
== END 2021-06-06 11:00 | disposition home or self-care (01) ==
LOC: EDH 11:09 → EDHIP 17:06 → 4BH 06-05 04:18
PROVIDERS: ADMIT Internal Medicine; ATTEND Internal Medicine
DX: L30.4 Erythema intertrigo (principal); Z20.822 Contact with and (suspected) exposure to COVID-19; N39.0 Urinary tract infection, site not specified; R10.30 Lower abdominal pain, unspecified; I10 Essential (primary) hypertension; E78.5 Hyperlipidemia, unspecified; E66.9 Obesity, unspecified; B36.9 Superficial mycosis, unspecified; I63.9 Cerebral infarction, unspecified; E86.0 Dehydration; R19.7 Diarrhea, unspecified; Z79.02 Long term (current) use of antithrombotics/antiplatelets; Z86.73 Personal history of transient ischemic attack (TIA), and cerebral infarction without residual deficits; Z79.899 Other long term (current) drug therapy; Z98.890 Other specified postprocedural states; Z79.82 Long term (current) use of aspirin; Z68.26 Body mass index [BMI] 26.0-26.9, adult
CPT/HCPCS: 36415 ×2; 80048; 80053; 81001; 82948 ×7; 83735; 84100; 84145; 85025 ×2; 87040 ×2; 87077; 87186; 87635; 96361 ×2; 96372 ×2; 96374; 96376; 99284; C9803; G0378 ×42; J0696 ×2; J1650 ×3; J2405; J7030 ×2; J7040

== ENCOUNTER → 2021-06-18 | Outpatient (CLI) | payer OTHER | END | disposition home or self-care (01) | LOC: SHCH 10:16 | PROVIDERS: ATTEND Internal Medicine Cardiovascular Disease | DX: I51.7 Cardiomegaly (principal); I65.23 Occlusion and stenosis of bilateral carotid arteries; R06.09 Other forms of dyspnea; E78.5 Hyperlipidemia, unspecified | CPT/HCPCS: 93306; 93880 ==

== ENCOUNTER 2022-04-25 09:59 | Emergency (ER) | payer OTHER ==
[~2022-04-25] VITALS: Ht 160 cm; Wt 72.6 kg
[~2022-04-25 09:59] MED LIST changes: +CLOP-31 PO; -CLOP75TA14 PO
[2022-04-25 10:19] LABS: BASOPHILS % (AUTO) 0.1 % (0.0-5.0); HEMATOCRIT 43.6 % (42-54); LYMPHOCYTES % (AUTO) 10.6 % (21.0-51.0); MEAN CORPUSCULAR HEMOGLOBIN 25.3 pg (27.0-33.0); MEAN CORPUSCULAR HGB CONC 31.4 g/dL (32.0-36.0); MEAN CORPUSCULAR VOLUME 80.4 fL (79-99); MONOCYTES % (AUTO) 7.5 % (3.0-13.0); NEUTROPHILS % (AUTO) 81.5 % (40.0-77.0); PLATELET COUNT (AUTO) 207 K/uL (130-400); RED BLOOD CELL COUNT(AUTO) 5.42 MIL/uL (4.50-6.20); RED CELL DISTRIBUTION WIDTH 16.8 % (11.0-15.5); WHITE BLOOD COUNT (AUTO) 9.3 K/uL (4.8-10.8)
[2022-04-25 10:34] LABS: ALBUMIN 2.8 g/dL (3.5-5.0); CREATININE 0.8 mg/dL (0.5-1.5); TOTAL PROTEIN, SERUM 6.8 g/dL (6.0-8.3)
[2022-04-25 10:41] LABS: POTASSIUM 2.9 mmol/L (3.5-5.1)
[2022-04-25 10:50] LABS: B-TYPE NATRIURETIC PEPTIDE 56 pg/mL (0-100)
[2022-04-25] MEDS ORDERED: POTASSIUM BICARB/CIT AC 25 MEQ TABLET.EFF PO ONE (11:00)
[2022-04-25] MEDS ORDERED: ALBUTEROL 0.083% 2.5 MG/3 ML INH IH STA (11:02)
[2022-04-25] MEDS ORDERED: IPRATROPIUM 0.5 MG/2.5 ML INH IH STA (11:02)
[2022-04-25] MEDS ORDERED: SOLU-MEDROL 125MG VIAL IVP STA (11:02)
[2022-04-25 11:49] VITALS: BP 121/54
== END 2022-04-25 12:12 | disposition home or self-care (01) ==
LOC: EDH 09:59
DX: J11.1 Influenza due to unidentified influenza virus with other respiratory manifestations (principal); J45.909 Unspecified asthma, uncomplicated; F41.9 Anxiety disorder, unspecified; E78.00 Pure hypercholesterolemia, unspecified; Z79.82 Long term (current) use of aspirin; Z86.73 Personal history of transient ischemic attack (TIA), and cerebral infarction without residual deficits; Z79.899 Other long term (current) drug therapy
CPT/HCPCS: 99285; 96374; 71045; 84484; 80053; 83880; 85025; 36415; 93005; 94640; J2930

== ENCOUNTER 2022-09-02 15:47 | Emergency (ER) | payer OTHER, MEDICARE ==
[~2022-09-02] VITALS: Ht 160 cm; Wt 74.4 kg
[2022-09-02 17:11] VITALS: BP 176/70
[2022-09-02] MEDS ORDERED: TRAM-355 PO (18:44)
== END 2022-09-02 19:01 | disposition home or self-care (01) ==
LOC: EDH 15:47
DX: S90.32XA Contusion of left foot, initial encounter (principal); E11.9 Type 2 diabetes mellitus without complications; E78.00 Pure hypercholesterolemia, unspecified; Z79.01 Long term (current) use of anticoagulants; Z79.82 Long term (current) use of aspirin; W18.2XXA Fall in (into) shower or empty bathtub, initial encounter; Y93.89 Activity, other specified; Y92.89 Other specified places as the place of occurrence of the external cause; Y99.8 Other external cause status
CPT/HCPCS: 73030; 73090; 73120; 73502; 73562; 73600; 73620